=== PATIENT | male | born 1960 | race Caucasian/White ===

== ENCOUNTER 2022-08-10 04:35 | Day surgery (SDC) | payer OTHER ==
[2022-08-09 11:34] VITALS: BMI 26.3
[2022-08-10 08:20] VITALS: TEMP 98
[2022-08-10 10:44] VITALS: BP 119/73; PULSE 80; RESP 18
== END 2022-08-10 09:18 | disposition home or self-care (01) ==
LOC: JASU-ENDO 04:35
PROVIDERS: ATTEND Internal Medicine Gastroenterology
PROC: 0DB78ZX Excision of Stomach, Pylorus, Via Natural or Artificial Opening Endoscopic, Diagnostic (ICD-10-PCS; 2022-08-10)
PROC: 0DB68ZX Excision of Stomach, Via Natural or Artificial Opening Endoscopic, Diagnostic (ICD-10-PCS; 2022-08-10)
PROC: 0DB38ZX Excision of Lower Esophagus, Via Natural or Artificial Opening Endoscopic, Diagnostic (ICD-10-PCS; 2022-08-10)
PROC: 0DB48ZX Excision of Esophagogastric Junction, Via Natural or Artificial Opening Endoscopic, Diagnostic (ICD-10-PCS; principal; 2022-08-10 08:00)
DX: K21.00 Gastro-esophageal reflux disease with esophagitis, without bleeding (principal); K44.9 Diaphragmatic hernia without obstruction or gangrene; K29.50 Unspecified chronic gastritis without bleeding
CPT/HCPCS: 82962; 88305-TC; 88342-TC

== ENCOUNTER 2022-09-07 05:46 | Day surgery (SDC) | payer OTHER ==
[2022-09-03 16:25] VITALS: BMI 26.1
[2022-09-07 09:39] VITALS: TEMP 98
[2022-09-07 09:45] VITALS: RESP 18
[2022-09-07 09:59] VITALS: BP 114/71
[2022-09-07 14:17] VITALS: PULSE 70
== END 2022-09-07 10:31 | disposition home or self-care (01) ==
LOC: JASU-ENDO 05:46
PROVIDERS: ATTEND Internal Medicine Gastroenterology
PROC: 0DJD8ZZ Inspection of Lower Intestinal Tract, Via Natural or Artificial Opening Endoscopic (ICD-10-PCS; principal; 2022-09-07 09:15)
DX: Z12.11 Encounter for screening for malignant neoplasm of colon (principal); K64.8 Other hemorrhoids
CPT/HCPCS: 82962

== ENCOUNTER 2022-10-26 05:13 | Day surgery (SDC) | payer OTHER ==
[2022-10-25 15:21] VITALS: BMI 26.3
[2022-10-26 10:56] VITALS: TEMP 98
[2022-10-26 13:53] VITALS: RESP 17
[2022-10-26 14:26] VITALS: BP 128/67; PULSE 77
== END 2022-10-26 14:30 | disposition home or self-care (01) ==
LOC: JASU-ENDO 05:13
PROVIDERS: ATTEND Internal Medicine Gastroenterology
PROC: 0DB68ZX Excision of Stomach, Via Natural or Artificial Opening Endoscopic, Diagnostic (ICD-10-PCS; 2022-10-26)
PROC: 0DB38ZX Excision of Lower Esophagus, Via Natural or Artificial Opening Endoscopic, Diagnostic (ICD-10-PCS; 2022-10-26)
PROC: 0DB98ZX Excision of Duodenum, Via Natural or Artificial Opening Endoscopic, Diagnostic (ICD-10-PCS; principal; 2022-10-26 12:00)
DX: K21.00 Gastro-esophageal reflux disease with esophagitis, without bleeding (principal); K22.2 Esophageal obstruction; K29.80 Duodenitis without bleeding; K29.50 Unspecified chronic gastritis without bleeding; K44.9 Diaphragmatic hernia without obstruction or gangrene
CPT/HCPCS: 36415; 82941; 82962; 88305-TC; 88342-TC